=== PATIENT | male | born 1965 | race Caucasian/White ===

== ENCOUNTER 2019-12-20 14:30 | Emergency (ER) | payer OTHER, SELFPAY ==
[2019-12-20 14:42] VITALS: BP 141/91; PULSE 98; RESP 18; TEMP 36.1; O2SAT 100
--- NOTE | 2019-12-20 14:52 | ED.GENADULT ---
HPI - General Adult General Chief complaint: Upper Respiratory Infection Stated complaint: Sob Source: patient Mode of arrival: ambulatory Limitations: no limitations History of Present Illness HPI narrative: Rudi Arshad is a 54 yo male with a PMH of spine cancer and tobacco abuse who comes to express care after choking on hamburger an hour ago. He tried to drink a milkshake and was able to swallow so came to express care. Denies current pain in the throat are difficulty swallowing, able to swallow saliva, patient is on disability for history of spinal cancer but currently is not taking any medication does not have problems swallowing Related Data Allergies Allergy/AdvReac Type Severity Reaction Status Date / Time No Known Allergies Allergy Unverified 02/15/19 14:15 Review of Systems Review of Systems: Narrative: CONSTITUTIONAL: Denies fever, chills, sweats. EYES: Denies visual changes, redness, discharge. ENT: Denies rhinorrhea, congestion, sore throat, otalgia. CARDIOVASCULAR: Denies chest pain, palpitations, edema. RESPIRATORY: Denies dyspnea, wheezing, cough GASTROINTESTINAL: Denies abdominal pain, nausea, vomiting, diarrhea. Difficulty swallowing GENITOURINARY: Denies dysuria, hematuria, abnormal discharge SKIN: Denies rash or itching. NEUROLOGIC: Denies numbness, or focal weakness. PSYCHIATRIC: Denies anxiety or depression. PMFSH Family History Family History Mother Patient's mother is in good health Family history of malignant neoplasm of breast in first degree relative Family history of heart disease in male family member before age 55 Father Patient's father is in good health Social History Social History (Updated 12/20/19 @ 14:56 by Kristie Norton CNP) Smoking status: Current every day smoker Second hand tobacco smoke exposure: Yes Alcohol intake: never Comments At time of signature, I agree with nursing past medical, surgical, social and family history. There is no relevant family history pertinent to the presenting complaint. Patient is anxious and blood pressure is elevated, patient to go to primary care to have recheck Exam Narrative: Exam Narrative: GENERAL: This is a well-nourished, well-developed patient, in mild distress. HEAD: normocephalic, atraumatic. EYES: Sclera clear/white. Vision is grossly intact. EARS: External ears normal. Hearing grossly intact. NOSE: External nose normal without nasal discharge, nares without redness, no rhinorrhea. THROAT: Mucous membranes moist, NECK: Neck supple, [id number] to swallow without difficulty; no obstruction noted on visual exam of pharynx CARDIOVASCULAR: Regular rate and rhythm without murmurs, gallops, or rubs. RESPIRATORY: Clear to auscultation. Breath sounds equal bilaterally. No wheezes, rales, or rhonchi. GASTROINTESTINAL: Abdomen soft, non-tender, lesions or rash, good texture and turgor. NEURO: awake, alert, and oriented to person, place and time. There were no obvious focal neurologic abnormalities. Steady gait EXTREMITIES: Normal range of motion. BACK: Nontender without deformity Course Course Emergency Course: Swallow test given by nurse-swallow without difficulty no regurgitation of water Follow-up with primary care physician; may use alcohol lozenges Vital Signs Vital signs: Vital Signs Temperature 97.0 F L 12/20/19 14:42 Pulse Rate 98 12/20/19 14:42 Respiratory Rate 18 12/20/19 14:42 Blood Pressure 141/91 H 12/20/19 14:42 Pulse Oximetry 100 12/20/19 14:42 Temperature 97.0 F L 12/20/19 14:42 Pulse Rate 98 12/20/19 14:42 Respiratory Rate 18 12/20/19 14:42 Blood Pressure 141/91 H 12/20/19 14:42 Pulse Oximetry 100 12/20/19 14:42 Medical Decision Making Differential Diagnosis Differential Diagnosis: Dysphasia versus pharyngitis versus throat irritation Vital Signs Vital Signs: Vital Signs Temperature 97.0 F L
== END 2019-12-20 15:06 | disposition home or self-care (01) ==
PROVIDERS: Emergency Provider Nurse Practitioner
DX: R13.10 Dysphagia, unspecified (principal); F17.200 Nicotine dependence, unspecified, uncomplicated; Z85.848 Personal history of malignant neoplasm of other parts of nervous tissue
CPT/HCPCS: 99213; G0463

== ENCOUNTER 2020-04-14 20:54 | Emergency (ER) | payer OTHER, SELFPAY ==
--- NOTE | ~2020-04-14 | XR_ITS ---
EXAMINATION: XR tibia fibula LT 2V, XR ankle LT min 3V EXAM DATE: 04/14/2020 21:14 INDICATION: Initial encounter following injury, with pain of the left ankle, tibia/fibula. TECHNIQUE: Left ankle frontal, lateral and oblique projections obtained and reviewed. Frontal and la teral projections left tibia/fibula. FINDINGS: There is acute closed posttraumatic fracture through the distal left femoral metaphysis, ex tending into the superolateral aspect of the mortise. Only 2-3 mm of posterior displacement. No angul ation. There is overlying soft tissue swelling. The mortise relationship does appear intact. Tibia un remarkable. Patellar orthopedic surgical internal fixation hardware. Moderate left knee osteoarthriti s, could be primary or posttraumatic. IMPRESSION: 1. Left distal fibular metaphyseal fracture into mortise. Reviewed, dictated and finalized at location A. IMPRESSION: 1. Left distal fibular metaphyseal fracture into mortise.
[2020-04-14 20:50] VITALS: BP 138/76; PULSE 95; RESP 18; TEMP 36.6; O2SAT 99
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
[2020-04-14] MEDS: HYDROmorphone HCL INJ (*CRX) 1 MG/ML SYR 0.5 MG IV PUSH (21:25)
[2020-04-14 22:35] VITALS: BP 129/72; PULSE 82; RESP 14; O2SAT 99
== END 2020-04-14 22:38 | disposition home or self-care (01) ==
PROVIDERS: Emergency Provider Emergency Medicine
DX: S89.302A Unspecified physeal fracture of lower end of left fibula, initial encounter for closed fracture (principal); V18.0XXA Pedal cycle driver injured in noncollision transport accident in nontraffic accident, initial encounter; M54.5 Low back pain; G89.29 Other chronic pain; F32.9 Major depressive disorder, single episode, unspecified; F17.210 Nicotine dependence, cigarettes, uncomplicated
CPT/HCPCS: 29515; 73590; 73610; 96374; 99284; J1170

== ENCOUNTER 2020-07-19 11:51 | Emergency (ER) | payer OTHER, SELFPAY ==
--- NOTE | ~2020-07-19 | XR_ITS ---
XR elbow RT min 3V 07/19/2020 12:24 INDICATION: Right elbow pain PROCEDURE: 4 views right elbow COMPARISON: No prior studies for comparison. FINDINGS: Fracture, dislocation or subluxation is not identified. No significant joint effusion. The soft tissues appear within normal limits. No foreign bodies are identified. IMPRESSION: 1: NO ACUTE BONE OR JOINT ABNORMALITY IDENTIFIED. Reviewed, dictated and finalized at location A. N [employer]
[2020-07-19 11:54] VITALS: BP 105/59; PULSE 112; RESP 18; TEMP 36; O2SAT 100
--- NOTE | 2020-07-19 12:33 | ED.UPPEXIN ---
HPI - Extremity Injury (Upper) General Chief Complaint: Extremity Injury, Upper Stated Complaint: elbow injury Time Seen by Provider: 07/19/20 12:12 Source: patient Mode of arrival: ambulatory Limitations: no limitations History of Present Illness HPI narrative: A 55-year-old male presents to the emergency department with complaints of right elbow pain. Patient states that a couple of days ago he had a slip and fall and hit his elbow on the way down. He notes swelling to the area and a lot of pain since then. Patient states that he can move his elbow but it does cause pain. He does note every once while he feels zingers going up his arm. He denies any loss of sensation at this time. Related Data Allergies Allergy/AdvReac Type Severity Reaction Status Date / Time No Known Allergies Allergy Verified 07/19/20 11:57 Review of Systems Review of Systems: Narrative: CONSTITUTIONAL: Denies fever, chills, or sweats. EYES: Denies visual changes, redness, or discharge. ENT: Denies rhinorrhea, congestion, sore throat, or otalgia. CARDIOVASCULAR: Denies chest pain, palpitations, or edema. RESPIRATORY: Denies cough or dyspnea. GASTROINTESTINAL: Denies abdominal pain, nausea, vomiting, or diarrhea. GENITOURINARY: Denies dysuria or hematuria. SKIN: Denies rash or itching. MUSCULOSKELETAL: Denies back pain, joint pain, or myalgia. Endorses pain at the right elbow NEUROLOGIC: Denies headache, numbness, dizziness, or weakness. PSYCHIATRIC: Denies anxiety or depression. [facility] Past Medical History Medical History Chronic back pain Depression Gout Spinal cord cancer Tobacco abuse Surgical History Surgical History History of tonsillectomy Family History Family History Mother Patient's mother is in good health Family history of malignant neoplasm of breast in first degree relative Family history of heart disease in male family member before age 55 Father Patient's father is in good health Social History Social History Smoking status: Current every day smoker Second hand tobacco smoke exposure: Yes Alcohol intake: never Gender identity (if verbalized by the patient): Male Exam Narrative: Exam Narrative: GENERAL: Well-appearing, well-nourished, and in no acute distress. HEAD: Normocephalic, atraumatic. EYES: PERRLA and EOMI. ENT: Nares clear, no rhinorrhea or epistaxis. Mucous membranes moist. Oropharynx without tonsillar hypertrophy exudate or other lesions. Bilateral TMs pearly sorto nonbulging NECK: Supple. No adenopathy or masses. No carotid bruits or JVD CHEST: Clear to auscultation. No respiratory distress. No wheezes rales or rhonchi HEART: Regular rate and rhythm. No murmur heard. Normal peripheral pulses. ABDOMEN: Soft, nontender, nondistended, normal active bowel sounds. EXTREMITIES: Normal range of motion. No edema. Palpable bursitis noted at the right olecranon process. SKIN: Warm, dry, no rash. NEURO: No focal deficits. Alert and oriented x3. PSYCH: Normal mood and affect. Course Vital Signs Vital signs: Vital Signs Temperature 36.0 C L 07/19/20 11:54 Pulse Rate 112 H 07/19/20 11:54 Respiratory Rate 18 07/19/20 11:54 Blood Pressure 105/59 L 07/19/20 11:54 Pulse Oximetry 100 07/19/20 11:54 Temperature 36.0 C L 07/19/20 11:54 Pulse Rate 112 H 07/19/20 11:54 Respiratory Rate 18 07/19/20 11:54 Blood Pressure 105/59 L 07/19/20 11:54 Pulse Oximetry 100 07/19/20 11:54 MDM - Extremity Injury (Upper) MDM Narrative Medical decision making narrative: In brief this 55-year-old male came in for an injury to his elbow. Physical exam and x-rays confirm a likely bursitis. Patient will be treated conservatively with Jigar wrap, rest and anti-inflammatories. X-ray was r
== END 2020-07-19 12:53 | disposition home or self-care (01) ==
PROVIDERS: Emergency Provider Emergency Medicine
DX: M70.21 Olecranon bursitis, right elbow (principal); M10.9 Gout, unspecified; F17.200 Nicotine dependence, unspecified, uncomplicated; Z85.848 Personal history of malignant neoplasm of other parts of nervous tissue; W01.0XXA Fall on same level from slipping, tripping and stumbling without subsequent striking against object, initial encounter
CPT/HCPCS: 73080; 99283

== ENCOUNTER 2022-06-28 00:16 | Emergency (ER) | payer OTHER, SELFPAY ==
[2022-06-28 00:25] VITALS: BP 148/99; PULSE 106; RESP 19; TEMP 36.4; O2SAT 97
[2022-06-28 00:29] VITALS: O2SAT 98
--- NOTE | 2022-06-28 00:31 | ED.GENADULT ---
HPI - General Adult General Chief complaint: Unspecified Stated complaint: SOB x 4 hour, can't swallow Time Seen by Provider: 06/28/22 00:26 History of Present Illness HPI narrative: This is a 57-year-old male with prior history of food impactions, presenting the emergency department complaining of inability to swallow. The patient states he was eating hamburger approximately 4 hours prior to arrival when the piece got stuck. He states he has not been able to swallow anything including his saliva. He denies difficulty breathing or significant pain. Related Data Allergies Allergy/AdvReac Type Severity Reaction Status Date / Time No Known Allergies Allergy Verified 06/28/22 00:17 Review of Systems Review of Systems: CONSTITUTIONAL: Denies fever, chills, or sweats. CARDIOVASCULAR: Denies chest pain, palpitations, or edema. RESPIRATORY: Denies cough or dyspnea. GASTROINTESTINAL: Difficulty swallowing denies abdominal pain, nausea, vomiting, or diarrhea. MUSCULOSKELETAL: Denies back pain, joint pain, or myalgia. NEUROLOGIC: Denies headache, numbness, dizziness, or weakness. PSYCHIATRIC: Denies anxiety or depression. [facility] Past Medical History Medical History (Updated 06/28/22 @ 01:28 by Tyrell Millan MD) Chronic back pain Depression Food impaction of esophagus Gout Spinal cord cancer Tobacco abuse Surgical History Surgical History History of tonsillectomy Family History Family History Mother Patient's mother is in good health Family history of malignant neoplasm of breast in first degree relative Family history of heart disease in male family member before age 55 Father Patient's father is in good health Social History Social History Smoking status: Current every day smoker Second hand tobacco smoke exposure: Yes Alcohol intake: never Gender identity (if verbalized by the patient): Male Exam Narrative: GENERAL: Well-developed, well-nourished, in mild distress. HEAD: Normocephalic, atraumatic. EYES: PERRLA and EOMI. ENT: Nares clear, no rhinorrhea or epistaxis. Mucous membranes moist. Oropharynx without tonsillar hypertrophy exudate or other lesions. NECK: Supple. No adenopathy or masses. No carotid bruits or JVD CHEST: Clear to auscultation. No respiratory distress. No wheezes rales or rhonchi HEART: Regular rate and rhythm. No murmur heard. Normal peripheral pulses. ABDOMEN: Soft, nontender, nondistended, normal active bowel sounds. EXTREMITIES: Normal range of motion. No edema. SKIN: Warm, dry, no rash. NEURO: No focal deficits. Alert and oriented x3. Course Course Emergency Course: 00:29 - Discussed patient with on-call GI physician, Dr. Dang who will plan to take patient to endoscopy suite. 01:25 - The patient states he feels as though he swallowed the mass. He has tolerated p.o. fluids. Discussed patient with GI physician, Dr. Dang who agrees to evaluate outpatient. 01:37 - Labs unremarkable. Will discharge. Discussed return emergency precautions including signs/symptoms of recurrent food impaction and respiratory distress. The patient voiced understanding and is comfortable with the plan. All questions answered to satisfaction Vital Signs Vital signs: Vital Signs Temperature 97.5 F L 06/28/22 00:25 Pulse Rate 106 H 06/28/22 00:25 Respiratory Rate 19 06/28/22 00:25 Blood Pressure 148/99 H 06/28/22 00:25 Pulse Oximetry 97 06/28/22 00:25 Oxygen Delivery Room Air 06/28/22 00:25 Temperature 97.5 F L 06/28/22 00:25 Pulse Rate 102 H 06/28/22 00:51 Respiratory Rate 18 06/28/22 00:51 Blood Pressure 135/93 H 06/28/22 00:51 Pulse Oximetry 98 06/28/22 00:51 Oxygen Delivery Room Air 06/28/22 00:29 Medical Decision Making MDM Narrative Medical decision making na
[2022-06-28 00:51] VITALS: BP 135/93; PULSE 102; RESP 18; O2SAT 98
[2022-06-28 01:18] LABS: Basophils Absolute Auto 0.1 K/mm3 (0.0-0.1); Basophils Percent Auto 0.7 % (0.2-1.2); Eosinophils Absolute Auto 0.5 K/mm3 (0-0.3); Eosinophils Percent Auto 3.7 % (0-4.4); Hematocrit 47.9 % (42.0-52.0); Immature Granulocyte Absolute 0.06 K/mm3 (0.00-0.031); Immature Granulocyte Percent A 0.4 % (0-0.5); Lymphocytes Absolute Auto 2.86 K/mm3 (0.9-3.2); Lymphocytes Percent Auto 20.8 % (18.3-44.2); Mean Corpuscular HGB Conc 33.4 g/dl (32-36); Mean Corpuscular Hemoglobin 31.3 pg (26-34); Mean Corpuscular Volume 93.6 fl (80-100); Mean Platelet Volume 9.4 fl (7.4-10.4); Monocytes Absolute Auto 1.1 K/mm3 (0.1-0.6); Monocytes Percent Auto 8.1 % (2.6-8.5); Neutrophils Absolute Auto 9.2 K/mm3 (1.3-6.7); Neutrophils Percent Auto 66.3 % (45.5-73.1); Platelet Count Result 319 k/mm3 (150-375); Red Blood Count 5.12 M/mm3 (4.6-6.20); Red Cell Distribution Width 12.1 % (11.5-14.5); White Blood Count 13.8 K/mm3 (4.5-10.0)
--- NOTE | 2022-06-28 01:19 | PC.NURSE ---
Pt states he thinks he cleared food bolus. PO challenge given, pt able to swallow secretions. SARBJIT gandhi notified.
[2022-06-28 01:30] LABS: Alanine Aminotransferase 53 U/L (6-50); Albumin Level 4.4 g/dL (3.5-5.1); Alkaline Phosphatase 141 U/L (38-126); Anion Gap 4 mmol/L (8-16); Aspartate Amino Transferase 37 U/L (17-59); Bilirubin,Total 0.5 mg/dL (0.2-1.3); Blood Urea Nitrogen 16 mg/dL (9-20); Carbon Dioxide 30 mmol/L (22-30); Chloride 105 mmol/L (98-107); Estimated CRCL calculation 59 ml/min; Estimated Glomerular Filt Rate > 60; Glucose 98 mg/dL (65-110); Potassium 4.1 mmol/L (3.4-5.0); Sodium 139 mmol/L (137-145)
[2022-06-28 01:38] LABS: Prothrombin Time 12.4 Seconds (11.1-14.7)
== END 2022-06-28 01:46 | disposition home or self-care (01) ==
PROVIDERS: Emergency Provider Preventive Medicine Aerospace Medicine
DX: T18.128A Food in esophagus causing other injury, initial encounter (principal); X10.1XXA Contact with hot food, initial encounter; F32.9 Major depressive disorder, single episode, unspecified; F17.210 Nicotine dependence, cigarettes, uncomplicated
CPT/HCPCS: 36415; 80053; 85025; 85610; 86850; 86900; 86901; 99283